=== PATIENT | female | born 1990 | race Caucasian/White ===

== ENCOUNTER 2016-07-08 17:31 | Emergency (ER) | payer MEDICAID, MEDICARE ==
[~2016-07-08] VITALS: Ht 165.1 cm; Wt 60.0 kg
[2016-07-08] MEDS ORDERED: SODIUM CHLORIDE 0.9% 1,000 ML IV ONE (17:42)
[2016-07-08] MEDS ORDERED: KETOROLAC 30MG/ML VIAL IV STA (17:42)
[2016-07-08] MEDS ORDERED: ONDANSETRON HCL 4MG/2ML VIAL IV STA (17:42)
[2016-07-08] MEDS ORDERED: MORPHINE SULFATE 4 MG/ML CPJ (NOT FOR IM USE) IV STA (17:42)
[2016-07-08 18:23] LABS: HCG SCREEN NEGATIVE
[2016-07-08] MEDS ORDERED: MIDAZOLAM HCL 2 MG/2 ML VIAL IV ONE (19:30)
[2016-07-08] MEDS ORDERED: KETAMINE HCL 50 MG/ML 10ML IV ONE (19:30)
[2016-07-08] MEDS ORDERED: MORPHINE SULFATE 4 MG/ML CPJ (NOT FOR IM USE) IV ONE (20:00)
[2016-07-08 20:58] VITALS: BP 121/56
== END 2016-07-08 20:58 | disposition home or self-care (01) ==
LOC: ER 17:32
DX: S82.52XA Displaced fracture of medial malleolus of left tibia, initial encounter for closed fracture (principal); X58.XXXA Exposure to other specified factors, initial encounter; Y93.39 Activity, other involving climbing, rappelling and jumping off; Y92.092 Bedroom in other non-institutional residence as the place of occurrence of the external cause; R03.0 Elevated blood-pressure reading, without diagnosis of hypertension
CPT/HCPCS: 27840; 73600; 73620; 84703; 96361; 96374; 96375; 96376; 99152; 99285; J1885; J2250; J2270; J2405; J3490; J7030; Z7610